=== PATIENT | female | born 1960 | race Hispanic/Latino ===

== ENCOUNTER → 2025-06-22 | Outpatient (CLI) | payer OTHER ==
--- NOTE | 2025-06-29 10:02 | HMCIMG ---
BILATERAL BREAST ULTRASOUND: CLINICAL HISTORY: Follow-up for dense breasts from mammogram from 06/03/2025 Heterogeneous homogeneous echotexture throughout both the breasts without evidence of focal solid or cystic masses. There is subareolar bilateral prominent ductal ectasia. Both axillary region has a benign lymph node the right measures 1.2 x 1.0 cm the left measures 1.4 x 0.6 cm. IMPRESSION: Dense breasts with no cyst hypoechoic lesion seen or cyst. I would recommend annual mammography with tomography with bilateral breast sonogram. FINAL ASSESSMENT: ACR: BI-RAD- 2. Benign: Also a negative assessment; finding(s) benign abnormalities. Management: Routine mammography screening. Likelihood of Cancer: Essentially 0% likelihood of malignancy.
== END | disposition home or self-care (01) ==
LOC: RAH 15:11
PROVIDERS: ATTEND Internal Medicine
DX: N60.42 Mammary duct ectasia of left breast (principal); N60.41 Mammary duct ectasia of right breast; R92.333 Mammographic heterogeneous density, bilateral breasts